=== PATIENT | male | born 1965 | race Asian ===

== ENCOUNTER 2016-10-20 09:25 | Emergency (ER) | payer OTHER ==
[2016-10-20 09:40] VITALS: BP 150/83; PULSE 100; TEMP 99.4; BMI 23.6
[2016-10-20] MEDS ORDERED: PSEUDOEPHEDRINE HCL 60 MG TABLET PO STA (10:29)
[2016-10-20] MEDS ORDERED: ALBUTEROL SO4 0.083% IH SOL 2.5 MG/3 ML VIAL.NEB. NEB ONE ×2 (10:33→10:45)
--- NOTE | 2016-10-20 10:50 | PDOC ---
History of Present Illness - General Chief Complaint: Cold Symptoms Stated Complaint: COUGH, FEVER Time Seen by Provider: 10/20/16 10:02 History Source: Patient Exam Limitations: No Limitations - History of Present Illness Initial Comments: 10/20/16 10:44 50 yr male with c/o sore throat, cough for 4 days, today with loss of voice. no nausea or vomiting or diarrhea. Pt has DM, HTN took meds this am. Denies SOB no chest pain. Severity: reports: mild Past History - Past Medical History Allergies/Adverse Reactions: Allergies Allergy/AdvReac Type Severity Reaction Status Date / Time No Known Allergies Allergy Verified 10/20/16 09:40 Home Medications: Ambulatory Orders Amlodipine Besylate 5 mg PO ASDIR 10/20/16 Losartan Potassium 25 mg PO ASDIR 10/20/16 Metformin HCl 500 mg PO BID 10/20/16 Diabetes: Yes HTN: Yes Hypercholesterolemia: Yes - Family Disease History Comment:: 10/20/16 10:45 none relevant - Psycho/Social/Smoking Cessation Hx Suicidal Ideation: No Smoking History: Never smoked Information on smoking cessation initiated: No Respiratory Specific PMHX - Complaint Specific PMHX Angina: No Bronchitis: No Pneumonia: No Pulmonary Embolus: No TB (Tuberculosis): No Review of Systems - Review of Systems Able to Perform ROS?: No Is the patient limited U[place]bek proficient: No Constitutional: No: Symptoms Reported HEENTM: Yes: Symptoms Reported Respiratory: Yes: Symptoms reported *Physical Exam - Vital Signs Last Vital Signs Temp Pulse Resp BP Pulse Ox 99.4 F 100 H 18 150/83 99 10/20/16 09:37 10/20/16 09:37 10/20/16 09:37 10/20/16 09:37 10/20/16 09:37 - Physical Exam General Appearance: Yes: Nourished, Appropriately Dressed HEENT: positive: EOMI, WIL, Pharyngeal Erythema, Nasal Congestion Neck: positive: Supple Respiratory/Chest: positive: Lungs Clear, Normal Breath Sounds Cardiovascular: positive: Regular Rhythm, Regular Rate Gastrointestinal/Abdominal: positive: Normal Bowel Sounds, Soft Musculoskeletal: positive: Normal Inspection Extremity: positive: Normal Capillary Refill, Normal Inspection, Normal Range of Motion Integumentary: positive: Normal Color, Dry, Warm Neurologic: positive: Fully Oriented, Alert, Normal Mood/Affect, Normal Response , Motor Strength 5/5 Medical Decision Making - Medical Decision Making 10/20/16 10:47 cc: sore throat, cough loss of voice for 4 days low grade fever, no SOB or chest pain pt is non toxic vitals are stable will give albuterol, check for strep *DC/Admit/Observation/Transfer Diagnosis at time of Disposition: Pharyngitis Qualifiers: Pharyngitis/tonsillitis etiology: unspecified etiology Qualified Code(s): J02.9 - Acute pharyngitis, unspecified - Discharge Dispostion Disposition: HOME Condition at time of disposition: Good - Patient Instructions Additional Instructions: use albuterol inhaler as directed take tylenol 650mg every 4-6hrs for fever increae vitamin C and Zinc intake to boost immune system decaf tea with honey and lemon is helpful for sore throat and cough follow with PMD in 2-3 days if no improvement return to ER for any worsening symptoms
== END 2016-10-20 11:26 | disposition home or self-care (01) ==
LOC: JERFT 09:25
PROC: 3E0F7GC Introduction of Other Therapeutic Substance into Respiratory Tract, Via Natural or Artificial Opening (ICD-10-PCS; principal; 2016-10-20)
DX: J02.9 Acute pharyngitis, unspecified (principal)
CPT/HCPCS: 87070; 87430; 99281-25